=== PATIENT | female | born 1975 ===

== ENCOUNTER 2019-06-04 17:20 | Emergency (ER) | payer MEDICAID ==
[~2019-06-04] VITALS: Ht 167.6 cm; Wt 83.3 kg
[2019-06-04 17:26] VITALS: BP 131/89
--- NOTE | 2019-06-04 18:16 | NUR ---
PATIENT WAS SEEN IN TRIAGE PER MD. COMPLAINT INCLUDES SWELLING TO LOWER LEGS AND WOULD LIKE MENTAL HEALTH INFORMATION. DC INSTRUCTIONS GIVEN TO PATIENT WITH FLYER FOR [facility]. STATES SHE JUST ARRIVED IN TOWN FROM [place], [place] AND WILL CALL [facility] FOR FOLLOW-UP. PATIENT DEPARTED FROM UNIT WITH SUITCASE, BACKPACK, AND JACKET.
== END 2019-06-04 18:22 | disposition home or self-care (01) ==
LOC: ER 17:21
DX: R60.0 Localized edema (principal); Z88.6 Allergy status to analgesic agent; Z79.2 Long term (current) use of antibiotics; X58.XXXA Exposure to other specified factors, initial encounter; Y93.01 Activity, walking, marching and hiking; Y92.89 Other specified places as the place of occurrence of the external cause; Y99.8 Other external cause status
CPT/HCPCS: 99281; 99283